=== PATIENT | female | born 1995 | race Caucasian/White ===

== ENCOUNTER 2023-12-09 21:19 | Emergency (ER) | payer OTHER, SELFPAY ==
[2023-12-09 21:29] VITALS: BP 170/103
[2023-12-09] MEDS: ZOFRAN ODT (ORALLY DISINTEGRATING) 4 MG PO (21:38)
[2023-12-09 21:54] LABS: % Basophils 0.2 % (0-2); % Eosinophils 0.2 % (0-6); % Immature Granulocytes 0.2 % (0-0.5); % Lymphocytes 35.3 % (20.5-51.1); % Monocytes 8.3 % (1.7-9.3); % Neutrophils 55.8 % (42.2-75.2); Absolute Lymphocytes 1.9 10^3/uL (1.2-3.4); Absolute Monocytes 0.5 10^3/uL (0.1-0.6); Hematocrit 42.7 % (37.0-47.0); Hemoglobin 14.9 g/dL (12.0-16.0); Mean Corp Hgb Conc. 34.9 g/dL (33.0-37.0); Mean Corpuscular Hgb 27.9 pg (27.0-31.0); Nucleated Red Blood Cells % 0 %; Platelet Count 258 10^3/uL (130-400); Red Blood Cell Count 5.34 10^6/uL (4.20-5.40); Red Cell Dist. Width 12.4 % (11.5-14.5); White Blood Cell Count 5.4 10^3/uL (4.8-10.8)
[2023-12-09 22:00] LABS: Urine Albumin Trace (Neg - Trace); Urine Bilirubin 1+ (Negative); Urine Character Slightly Cloudy (Clear); Urine Color Yellow; Urine Glucose Negative (Negative); Urine Ketone 3+ (Negative); Urine Leukocyte Negative (Negative); Urine Nitrite Negative (Negative); Urine Occult Blood 1+ (Negative); Urine Urobilinogen Negative (Neg - 1+)
[2023-12-09 22:15] LABS: HCG, Serum Qualitative Screen Negative
[2023-12-09 22:22] LABS: ALT (SGPT) 14 U/L (0-35); AST (SGOT) 22 U/L (14-36); Albumin 5.1 g/dl (3.5-5.0); Alkaline Phosphatase 66 U/L (38-126); Blood Urea Nitrogen 13 mg/dl (7-17); Calcium 10.3 mg/dl (8.4-10.2); Carbon Dioxide 21 mmol/L (22-30); Chloride 105 mmol/L (98-107); Glucose 114 mg/dl (70-99); Lipase 101 U/L (23-300); Potassium 3.5 mmol/L (3.5-5.1); Sodium 142 mmol/L (135-145); Total Bilirubin 0.9 mg/dl (0.2-1.3); Total Protein 7.4 g/dl (6.3-8.2); eGFR > 60.00
[2023-12-09 22:25] LABS: Urine Bacteria Moderate (Negative); Urine Mucus Moderate; Urine Red Blood Cell 0-2 /HPF (0-2); Urine Squamous Cell 0-2 /LPF (Few)
[2023-12-10 01:25] VITALS: BMI 20.8
--- NOTE | 2023-12-10 01:28 | EDRN ---
Pt says last week pt started feeling sick, developed chills then diarrhea started. Pt had diarrhea for 4-5 days and took imodium which helped temporarily. Pt has bentyl Rx for IBS which she rarely uses and she took to doses and it helped. Pt then
started vomiting and in last 24 hours has not been able to keep anything down. Pt has decreased appetite. Pt adds when she went to urinate, she had a discharged from her rectum twice that was clear and smelled like fish. No cp, sob, abd pain,
urinary symptoms. Pt had low grade fever first day which went away. Pt took tylenol first 2 days she felt ill. Pt has taken 4 covid tests all of which were negative - last test was yesterday morning.
[2023-12-10 01:34] VITALS: BP 152/91
[2023-12-10 02:00] VITALS: BP 118/89
--- NOTE | 2023-12-10 02:25 | ED.GENMED ---
History of Present Illness
General
Chief Complaint: Abdominal Symptoms
Source: patient
Exam Limitations: none
Time Seen by Provider: 12/10/23 01:27
History of Present Illness
History of Present Illness:
This is a 27 year old female that comes in with c/o vomiting. States that last Wednesday she has a low grade fever of 100.4 and she just didn't feel well. States that she started with diarrhea and for 4 days this continued. States that she started to
feel weak and fatigued. States that she would take Imodium and this would stop the diarrhea for about 12 hours and then it would come right back. States that she also took Bentyl 2 doses 8 hours apart on Wednesday but she just felt weird after
this. Stats that she has vomited all day and that this started last night. States that she was given Zofran here and this helped. States that she has a slight headache and she has not had any diarrhea today. States that she felt a little woozy.
Denies any fever, chills, chest pain, SOB, abd pain, urinary burning.
Past History
Past History
ED Past Medical History: Arrthythmia (PVC's) and Asthma (Sports induced as child); Negative HTN, Hypercholesterolemia or NIDDM
ED Past Surgical History: None
Social History
Tobacco: Non-smoker
Alcohol: Occasional
Personal: Single
Living: with family
Review of Systems
Review of Systems
All Other Systems: ROS reviewed and negative except as documented in HPI and ROS
Constitutional: Reports no symptoms; Denies fever or chills
EENT: Reports no symptoms
Respiratory: Reports no symptoms; Denies cough or trouble breathing
Cardiac: Reports no symptoms; Denies chest pain
ABD/GI: Reports nausea and vomiting; Denies abdominal pain or diarrhea (None today)
: Reports no symptoms; Denies dysuria, frequency or urgency
Musculoskeletal: Reports no symptoms
Skin: Reports no symptoms
Neurological: Reports headache (Slight) and other (Whoozy)
Psychiatric: Reports no symptoms
Phy Exam
General Physical Exam
General Presentation: well appearing and no apparent distress
General age: appears stated age
General Skin: warm and dry
General Habitus: normal
General Mental: alert
General Hydration: appears well hydrated
ENT Exam
ENT Exam: TM's normal, pharynx normal and neck supple
Eye Exam
Eye Exam: EOMI
Cardiovascular Exam
Cardiovascular Exam: regular rate/rhythm, no edema, no murmur and normal peripheral pulses
Pulmonary Exam
Pulmonary Exam: lungs clear, no respiratory distress, no rales, chest non tender, no crackles, no rhonchi, no wheezing and no cough
Gastrointestinal Exam
Gastrointestinal Exam: normal bowel sounds, non tender, soft, no organomegaly, no pulsatile mass and non distended
Musculoskeletal Exam
Musculoskeletal Exam: full ROM and no edema
Skin Exam
Skin Exam: normal color, warm/dry, no rash and no petechia
Psychiatric Exam
Psychiatric Exam: normal mood/affect
Course
Orders/Labs/Results
Orders:
Orders
12/09/23 21:33
Test Result ONCE
12/09/23 21:35
Ondansetron Orally Disint [Zofran Odt (Orally Disintegrating)] 4 mg .ROUTE .STK-MED ONE
12/09/23 21:38
CBC/With Diff [Complete Blood Count/With Diff] Urgent
CMP [Comprehensive Metabolic Panel] Urgent
HCG, Serum Qualitative Screen Urgent
Lipase Urgent
Ondansetron Orally Disint [Zofran Odt (Orally Disintegrating)] 4 mg PO NOW STA
12/09/23 21:40
Urinalysis Reflex To Culture Urgent
Date Specimen was Collected: 12/09/23
Time Specimen was Collected: 21:34
Urine Microscopic Reflex Cult Urgent
Urine Culture Urgent
MILAGRO Source: U
Specimen Description:
Date Specimen was Collected: 12/09/23
Time Specimen was Collected: 21:34
12/10/23 02:38
0.9% Sodium Chloride 1000 ml [Nss] 1,000 ml IV BOLUS
Ondansetron Injectable [Zofran] 4 mg IV NOW STA
Abnormal Lab Results
12/09/23 12/09/23
21:38 21:40
MCV 80.0 L fL
(81.0-99.0)
Carbon Dioxide 21 L mmol/L
(22-30)
Glucose 114 H mg/dl
(70-99)
Calcium 10.3 H mg/dl
(8.4-10.2)
Albumin 5.1 H g/dl
(3.5-5.0)
Urine Ketones 3+ A
(Negative)
Ur Occult Blood Reflex 1+ A
(Negative)
Urine Bilirubin 1+ A
(Negative)
Urine Bacteria (Reflex) Moderate A
(Negative)
12/09/23 21:38
12/09/23 21:38
Glucose nonfasting. Urine negative for infection. Lipase normal at 101, HCG negative.
Vital Signs
Initial and Last Documented VS:
Initial Vital Signs
Temp Pulse Resp BP Pulse Ox
98.0 F 115 19 170/103 100
12/09/23 21:29 12/09/23 21:29 12/09/23 21:29 12/09/23 21:29 12/09/23 21:29
Last Documented Vital Signs
Temp Pulse Resp BP Pulse Ox
98.7 F 75 16 118/89 100
12/10/23 01:34 12/10/23 02:00 12/10/23 02:00 12/10/23 02:00 12/10/23 02:00
MDM/Problems Addressed
Differential Diagnosis Includes:
Viral syndrome, IBS, COVID
MDM/Problems Addressed:
This is a 27 year old female that comes in with c/o vomiting and diarrhea. States that she started on Wednesday with low grade fever and diarrhea. States that this continued for 4 days. Sates that she would take Imodium and it would stop for 12 hours.
States that she has also been given Bentyl and she took this twice but did not like the way it made her feel. States that she has not had any diarrhea today but was vomiting. States that she felt a little woozy like when she gets dehydrated.
Patient was given Zofran and feels better.
Will check labs, Give IV fluids and give oral fluids to see if she can keep them down. If able to keep down will discharge patient home as she has an appointment with the GI specialist on Wednesday.
Back into see patient. Patient is taking sips of liquid but states that she is feeling queazy. States that she would like the IV fluids even though she is tolerating the oral fluids. Will give a liter of fluid and a second dose of Zofran and
discharge home with a prescription for Zofran. Patient to return with any concerns.
Chronic conditions affecting care:
NA
Acute Exacerbation and/or Progression of Chronic Illness:
NA
*Critical Care Note
Total Time (30-74mins, 75-104mins- exclusive of procedures): Not Applicable
ED Attending Note
-
Portions of this chart may have been created with voice recognition software.� Occasional wrong word or��sound alike� substitutions may have occurred due to the inherent limitations of voice recognition software.
Discharge Plan
Departure
Patient Disposition: Home (Routine Discharge)
Date of Disposition: 12/10/23
Time of Disposition: 03:13
Patient with high blood pressure during this ER visit?: No
Condition: Good
Covid-19: Not Applicable
Discharge Problem:
Nausea & vomiting, Diarrhea
Instructions: Diarrhea in teens and adults, Clear Liquid Diet, Nausea and Vomiting, Adult (DC)
Prescriptions:
New
ondansetron 4 mg tablet,disintegrating
4 mg PO Q8H PRN (Reason: nausea and vomiting) Qty: 14 0RF
No Action
propranolol 20 mg Tablet
20 mg PO Q4HPRN PRN (Reason: palpitations)
Zyrtec
1 tab PO DAILY
Referrals:
Ruchi Leiva MD [Family Provider] - Follow up in 2-3 days
Activity Restrictions/Additional Instructions:
As discussed, your blood work is normal. Your urine is negative for infection. Please stay away form any milk or milk products until the diarrhea stops. Please stay on a liquid diet for the next 24 hours and given the stomach a change to settle. You
have had a Prescription for Zofran sent to your Pharmacy. Follow up with the Gastrointestinal specialist as scheduled. Follow up with the family doctor as needed. IF YOU HAVE ANY OTHER CONCERNS PLEASE RETURN WITH ANY CONCERNS.
Interventions
Interventions:
*Risk Screen - Suicide Last Done: 12/10/23 01:25
*General Assessment Last Done: 12/10/23 01:25
*Neglect/Abuse Screening Last Done: 12/10/23 01:25
ED- Fall Risk Assessment Last Done: 12/10/23 01:40
*ED COVID-19 Vaccine History Last Done: 12/10/23 01:25
JJ-Rcmffv-Nrtonfcpff Assessment Last Done: 12/10/23 01:40
Discharge Date and Time
Print Language: GREENLANDIC
[2023-12-10] MEDS: NSS 1000 IV (02:50)
[2023-12-10] MEDS: ZOFRAN 4 MG IV (02:51)
[2023-12-10 03:42] VITALS: BP 131/93
== END 2023-12-10 03:46 | disposition home or self-care (01) ==
LOC: EMR 21:19
PROVIDERS: EMERGENCY PHYSICIAN Student in an Organized Health Care Education/Training Program; FAMILY PHYSICIAN Family Medicine
DX: R11.2 Nausea with vomiting, unspecified (principal); R19.7 Diarrhea, unspecified; R50.9 Fever, unspecified; R42 Dizziness and giddiness; R51.9 Headache, unspecified; J45.909 Unspecified asthma, uncomplicated; Z88.2 Allergy status to sulfonamides; Z88.8 Allergy status to other drugs, medicaments and biological substances
CPT/HCPCS: 99284; 96374; 96361; 80053; 81003; 81015; 83690; 84703; 85025; 87086

== ENCOUNTER 2024-03-07 06:15 | Day surgery (SDC) | payer OTHER, SELFPAY | END 2024-03-07 09:47 | disposition home or self-care (01) | LOC: GI 06:15 | PROVIDERS: ATTENDING PHYSICIAN Internal Medicine | DX: K52.9 Noninfective gastroenteritis and colitis, unspecified (principal) | CPT/HCPCS: 45380; 88305 ==